=== PATIENT | male | born 1950 | race Caucasian/White ===

== ENCOUNTER → 2022-06-26 | Outpatient (CLI) | payer OTHER ==
[2022-06-26 12:49] LABS: Creatinine Urine 56.3 mg/dL (27.00-270.00); Microalbumin, Urine Quant. 11.3 mg/L (0.000-20.000)
[2022-06-26 12:50] LABS: Protein, Urine Quantitative 6.8 mg/dL (0.0-11.9)
== END | disposition home or self-care (01) ==
LOC: LAB SHORT 06:11
PROVIDERS: Internal Medicine Nephrology
DX: N18.30 Chronic kidney disease, stage 3 unspecified (principal); D63.1 Anemia in chronic kidney disease; N25.81 Secondary hyperparathyroidism of renal origin; E55.9 Vitamin D deficiency, unspecified; E29.1 Testicular hypofunction; D51.8 Other vitamin B12 deficiency anemias; D52.8 Other folate deficiency anemias; D50.9 Iron deficiency anemia, unspecified; R76.9 Abnormal immunological finding in serum, unspecified; R94.5 Abnormal results of liver function studies; R94.6 Abnormal results of thyroid function studies
CPT/HCPCS: 81050; 82043; 82570; 84156

== ENCOUNTER → 2022-07-03 | Outpatient (CLI) | payer OTHER | LOC: PLD 10:58 → LAB SHORT 10:58 | DX: D48.5 Neoplasm of uncertain behavior of skin (principal) | CPT/HCPCS: 88305 ==

== ENCOUNTER 2023-07-10 13:45 | Day surgery (SDC) | payer OTHER ==
[~2023-07-10] VITALS: Ht 177.8 cm; Wt 100.5 kg
[~2023-07-10 13:45] MED LIST: ACET500 PO; AMLO5 PO; Amlodipine Bes2.5 MG PO; Atropine Sulfate 0.1 MG/ML 10ML SYR ONE; CLOP75 PO; COLCRYS0.6 M1 PO; Carvedilol12.5 MG PO; Crestor20 MG PO; DOCU100 PO; Diovan160 MG PO; FAMO40; FISH OIL/OMEGA 3 PO; FURO20 PO; Glycopyrrolate 0.2 MG/ML 1MLVIAL ONE; LASIX20 M2 PO; LEVSOD25 PO; Lactated Ringer's 1,000 ML IV ONE; Lidocaine 2% 5 ML SDV ONE; Lidocaine HCl/Pf 1% 5 ML VIAL ONE; MULTI-VITAMIN1 EAC2 PO; MVI PO; Methylene Blue 1% 100 MG/10 ML VIAL ONE; OMEGA-3-FISH O1 EAC3 PO; OMEP20ER PO; Ondansetron HCl 2 MG / ML 2ML Vial ONE; Percocet 5-3251 EACH PO; SENNA LAXATIVE8.6 MG PO; ePHEDrine Sulfate 50 MG/ML 1ML Injection ONE; propofoL 0 ML IV ONE
[2023-07-10] MEDS ORDERED: propofoL 50 ML IV ONE (14:59)
[2023-07-10] MEDS ORDERED: Lactated Ringer's 1,000 ML IV ONE (15:26)
[2023-07-10] MEDS ORDERED: Lidocaine HCl 4% 5 ML SDA ONE (15:29)
--- NOTE | 2023-07-10 15:29 | NUR ---
07/10/23 1529 Antonietta Rebollar PT AMBULATORY IN PRE OP INDEPENDENTLY. AT BEDSIDE. CALL LIGHT IN REACH, BED IN LOWEST LOCKED POSITION.
[2023-07-10] MEDS ORDERED: propofoL 20 ML IV ONE (16:30)
[2023-07-10 17:23] VITALS: BP 166/86
== END 2023-07-10 17:28 | disposition home or self-care (01) ==
LOC: ORSCSDS 13:45
PROVIDERS: Surgery
PROC: 0DBP8ZX Excision of Rectum, Via Natural or Artificial Opening Endoscopic, Diagnostic (ICD-10-PCS; principal; 2023-07-10 15:00)
PROC: 0DBN8ZX Excision of Sigmoid Colon, Via Natural or Artificial Opening Endoscopic, Diagnostic (ICD-10-PCS; principal; 2023-07-10 15:00)
PROC: 0DBK8ZX Excision of Ascending Colon, Via Natural or Artificial Opening Endoscopic, Diagnostic (ICD-10-PCS; principal; 2023-07-10 15:00)
PROC: 0DBL8ZX Excision of Transverse Colon, Via Natural or Artificial Opening Endoscopic, Diagnostic (ICD-10-PCS; principal; 2023-07-10 15:00)
DX: K21.9 Gastro-esophageal reflux disease without esophagitis (principal); R10.13 Epigastric pain; K44.9 Diaphragmatic hernia without obstruction or gangrene; Z12.11 Encounter for screening for malignant neoplasm of colon; Z80.0 Family history of malignant neoplasm of digestive organs; D12.2 Benign neoplasm of ascending colon; D12.3 Benign neoplasm of transverse colon; K63.5 Polyp of colon; K62.1 Rectal polyp; E11.22 Type 2 diabetes mellitus with diabetic chronic kidney disease; I12.9 Hypertensive chronic kidney disease with stage 1 through stage 4 chronic kidney disease, or unspecified chronic kidney disease; N18.30 Chronic kidney disease, stage 3 unspecified; Z87.891 Personal history of nicotine dependence; E03.9 Hypothyroidism, unspecified; I25.10 Atherosclerotic heart disease of native coronary artery without angina pectoris; Z79.02 Long term (current) use of antithrombotics/antiplatelets; Z79.899 Other long term (current) drug therapy
CPT/HCPCS: 82947; 88305; 88342; J0461; J2001; J2405; J2704; J7120; Q9968

== ENCOUNTER 2025-04-06 06:02 | Day surgery (SDC) | payer OTHER ==
[~2025-04-06] VITALS: Ht 175.3 cm; Wt 87.8 kg
[2025-04-06] VITALS (8 sets, daily range): BP systolic 114–135; BP diastolic 60–71
[~2025-04-06 06:02] MED LIST changes: -Amlodipine Bes2.5 MG PO; -Atropine Sulfate 0.1 MG/ML 10ML SYR ONE; -Crestor20 MG PO; -Glycopyrrolate 0.2 MG/ML 1MLVIAL ONE; -Lactated Ringer's 1,000 ML IV ONE; -Lidocaine 2% 5 ML SDV ONE; -Lidocaine HCl/Pf 1% 5 ML VIAL ONE; -Methylene Blue 1% 100 MG/10 ML VIAL ONE; +OMEGA-3 FISH O1 EA21 PO; +OXYC5 PO; -Ondansetron HCl 2 MG / ML 2ML Vial ONE; +ROSUVASTATIN CA20 MG PO; -ePHEDrine Sulfate 50 MG/ML 1ML Injection ONE; -propofoL 0 ML IV ONE
--- NOTE | 2025-04-06 06:56 | NUR ---
Ambulatory in Day Surgery History, Chart, Medications and Allergies reviewed before start of procedure. Pre-Op teaching done. Pt verbalizes understanding. Patient States Post-Procedure ride home has been arranged.
[2025-04-06] MEDS ORDERED: CeFAZolin Sodium 2,000 MG in NS 100 ML IV SCH (07:15)
[2025-04-06] MEDS ORDERED: FentaNYL Citrate 50 MCG/ML 2 ML Injection ONE (07:19)
[2025-04-06] MEDS ORDERED: Dexamethasone Sod Phos 10 MG/ML 1ML VIAL ONE (07:47)
[2025-04-06] MEDS ORDERED: Ondansetron HCl 2 MG / ML 2ML Vial ONE (07:47)
[2025-04-06] MEDS ORDERED: Ketorolac Tromethamine 30mg Vial ONE (07:48)
[2025-04-06] MEDS ORDERED: Phenylephrine HCl 100 MCG/ML-NS 10MLSYR (1MG/10ML) ONE (07:49)
[2025-04-06] MEDS ORDERED: Albuterol 2.5 MG/3 ML VIAL INH PRN (07:55)
[2025-04-06] MEDS ORDERED: HYDROmorphone HCl/Pf 1MG SYR IV PRN ×2 (07:55)
[2025-04-06] MEDS ORDERED: FentaNYL Citrate 50 MCG/ML 2 ML Injection IV PRN ×2 (07:55)
[2025-04-06] MEDS ORDERED: Ondansetron HCl 2 MG / ML 2ML Vial IV PRN (07:55)
[2025-04-06] MEDS ORDERED: Albuterol HFA200 ACT/6.7 GM INH ONE (07:56)
[2025-04-06] MEDS ORDERED: Albuterol 2.5 MG/3 ML VIAL ONE (08:30)
--- NOTE | 2025-04-06 09:18 | NUR ---
Patient States Post-Procedure ride home has been arranged. Discharged via wheelchair to private car for ride home. Discharge instructions reviewed with patient. Patient verbalizes understanding. Copy given to patient to take home.
== END 2025-04-06 23:00 | disposition home or self-care (01) ==
LOC: ORSCMMR 06:02 → ORD 07:30 → ORSCMMR 07:30
PROVIDERS: Surgery
PROC: 0JH60WZ Insertion of Totally Implantable Vascular Access Device into Chest Subcutaneous Tissue and Fascia, Open Approach (ICD-10-PCS; principal; 2025-04-06 07:30)
DX: C25.0 Malignant neoplasm of head of pancreas (principal); I10 Essential (primary) hypertension; I25.10 Atherosclerotic heart disease of native coronary artery without angina pectoris; K21.9 Gastro-esophageal reflux disease without esophagitis; E03.9 Hypothyroidism, unspecified; G47.33 Obstructive sleep apnea (adult) (pediatric); Z79.899 Other long term (current) drug therapy; F17.290 Nicotine dependence, other tobacco product, uncomplicated
CPT/HCPCS: 77001; 82947; A9270; C1788; J0690; J1100; J1642; J1885; J2371; J2405; J2704; J3010; J7120

== ENCOUNTER → 2025-04-19 | Outpatient (CLI) | payer OTHER ==
[~2025-04-19] MED LIST changes: +ONDA4ODT MM
[2025-04-19 12:02] LABS: Anion Gap 18.0 mmol/L (3-11); Blood Urea Nitrogen 22.0 mg/dL (8-24); CO2, Blood 23.0 mmol/L (21-32); Calcium, Blood 9.2 mg/dL (8.5-10.1); Chloride, Blood 100.0 mmol/L (98-108); Creatinine, Blood 1.36 mg/dL (0.60-1.20); Glucose, Blood 165.0 mg/dL (70-99); Potassium, Blood 4.5 mmol/L (3.5-5.5); Sodium, Blood 136.0 mmol/L (136-145)
== END ==
LOC: LAB 11:03 → LAB SHORT 11:03
PROVIDERS: Internal Medicine Hematology & Oncology
DX: C25.0 Malignant neoplasm of head of pancreas (principal)
CPT/HCPCS: 36415; 80048

== ENCOUNTER 2025-04-25 12:44 | Emergency (ER) | payer OTHER ==
[~2025-04-25] VITALS: Ht 177.8 cm; Wt 83.9 kg
[~2025-04-25 12:44] MED LIST changes: -ONDA4ODT MM
[2025-04-25 13:31] LABS: BASOPHILS ABSOLUTE AUTO 0.04 K/mm3 (0.00-0.23); BASOPHILS PERCENT AUTO 1 % (0-2); EOSINOPHILS ABSOLUTE AUTO 0.26 K/mm3 (0.00-0.68); EOSINOPHILS PERCENT AUTO 4 % (0-6); Hematocrit 44.8 % (37.0-53.0); Hemoglobin 15.4 g/dL (13.5-17.5); IMMATURE GRAN ABSOLUTE AUTO 0.02 K/mm3 (0.00-0.10); IMMATURE GRAN PERCENT AUTO 0 % (0-1); LYMPHOCYTES ABSOLUTE AUTO 2.70 K/mm3 (0.84-5.20); LYMPHOCYTES PERCENT AUTO 46 % (21-46); MONOCYTES ABSOLUTE AUTO 0.62 K/mm3 (0.16-1.47); MONOCYTES PERCENT AUTO 11 % (4-13); Mean Corpuscular HGB Conc 34.4 g/dL (31.5-36.5); Mean Corpuscular Volume 92 fL (80-100); NEUTROPHILS ABSOLUTE AUTO 2.25 K/mm3 (1.96-9.15); NEUTROPHILS PERCENT AUTO 38 % (41-73); NRBC ABSOLUTE 0.00 K/mm3 (0.00-0.02); NRBC Auto 0.0 /100 WBC (0.0-0.2); Platelet Count 234 K/mm3 (150-400); RDW Coefficient Variation 13.2 % (11.7-14.2); RDW Standard Deviation 44.5 fL (35.1-46.3)
[2025-04-25] MEDS ORDERED: Prochlorperazine Edisylate 10 mg Vial IV ONE (13:40)
[2025-04-25 13:50] LABS: Alanine Aminotransfer (ALT/SGP 29.0 U/L (12-78); Albumin, Blood 3.3 g/dL (3.4-5.0); Albumin/Globulin Ratio 0.9 (0.8-1.8); Anion Gap 16.0 mmol/L (3-11); Aspartate Aminotrans (AST/SGOT 12.0 U/L (12-37); Bilirubin, Total 0.5 mg/dL (0.1-1.0); Blood Urea Nitrogen 35.0 mg/dL (8-24); CO2, Blood 15.0 mmol/L (21-32); Calcium, Blood 9.8 mg/dL (8.5-10.1); Chloride, Blood 106.0 mmol/L (98-108); Creatinine, Blood 1.73 mg/dL (0.60-1.20); Globulin, Blood 3.6 g/dL (2.2-4.0); Glucose, Blood 150.0 mg/dL (70-99); Potassium, Blood 4.6 mmol/L (3.5-5.5); Sodium, Blood 132.0 mmol/L (136-145); Total Protein, Blood 6.9 g/dL (6.4-8.2)
[2025-04-25 14:13] LABS: Magnesium, Blood 2.3 mg/dL (1.6-2.4)
[2025-04-25] MEDS ORDERED: ONDA4ODT MM (15:24)
[2025-04-25 15:37] VITALS: BP 108/58
== END 2025-04-25 16:36 | disposition home or self-care (01) ==
LOC: ER 12:44
PROVIDERS: Emergency Medicine
DX: E86.0 Dehydration (principal); R19.7 Diarrhea, unspecified; R11.0 Nausea; C25.9 Malignant neoplasm of pancreas, unspecified; I10 Essential (primary) hypertension; E78.5 Hyperlipidemia, unspecified; Z95.1 Presence of aortocoronary bypass graft; Z79.02 Long term (current) use of antithrombotics/antiplatelets; Z79.890 Hormone replacement therapy; Z79.899 Other long term (current) drug therapy
CPT/HCPCS: 80053; 83690; 83735; 85025; 93005; 93010; 96361; 96374; 99285-25; A9270; J0780; J7120

== ENCOUNTER → 2025-05-03 | Outpatient (CLI) | payer OTHER ==
[~2025-05-03] MED LIST changes: +AMLODIPINE BESYL5 MG PO; +LOPE2C PO; +ONDA4ODT MM
[2025-05-03 11:15] LABS: Anion Gap 14.0 mmol/L (3-11); Blood Urea Nitrogen 22.0 mg/dL (8-24); CO2, Blood 19.0 mmol/L (21-32); Calcium, Blood 9.1 mg/dL (8.5-10.1); Chloride, Blood 105.0 mmol/L (98-108); Creatinine, Blood 1.38 mg/dL (0.60-1.20); Glucose, Blood 148.0 mg/dL (70-99); Potassium, Blood 3.9 mmol/L (3.5-5.5); Sodium, Blood 134.0 mmol/L (136-145)
== END | disposition home or self-care (01) ==
LOC: LAB 09:30 → LAB SHORT 09:30
PROVIDERS: Internal Medicine Hematology & Oncology
DX: C25.9 Malignant neoplasm of pancreas, unspecified (principal)
CPT/HCPCS: 80048

== ENCOUNTER 2025-05-09 10:47 | Observation (INO) | payer OTHER ==
[~2025-05-09] VITALS: Ht 177.8 cm; Wt 78.0 kg
[~2025-05-09 10:47] MED LIST changes: -AMLODIPINE BESYL5 MG PO; -LOPE2C PO
[2025-05-09] MEDS ORDERED: NS 1,000 ML IV SCH (11:00)
[2025-05-09 11:53] LABS: Hematocrit 35.7 % (37.0-53.0); Hemoglobin 12.4 g/dL (13.5-17.5); Mean Corpuscular HGB Conc 34.7 g/dL (31.5-36.5); Mean Corpuscular Volume 91 fL (80-100); NRBC ABSOLUTE 0.00 K/mm3 (0.00-0.02); NRBC Auto 0.0 /100 WBC (0.0-0.2); Platelet Count 97 K/mm3 (150-400); RDW Coefficient Variation 13.4 % (11.7-14.2); RDW Standard Deviation 44.9 fL (35.1-46.3)
[2025-05-09 12:13] LABS: Alanine Aminotransfer (ALT/SGP 36.0 U/L (12-78); Albumin, Blood 2.5 g/dL (3.4-5.0); Albumin/Globulin Ratio 1.0 (0.8-1.8); Anion Gap 14.0 mmol/L (3-11); Aspartate Aminotrans (AST/SGOT 20.0 U/L (12-37); Bilirubin, Total 0.5 mg/dL (0.1-1.0); Blood Urea Nitrogen 22.0 mg/dL (8-24); CO2, Blood 16.0 mmol/L (21-32); Calcium, Blood 7.8 mg/dL (8.5-10.1); Chloride, Blood 108.0 mmol/L (98-108); Creatinine, Blood 1.2 mg/dL (0.60-1.20); Globulin, Blood 2.6 g/dL (2.2-4.0); Glucose, Blood 189.0 mg/dL (70-99); Magnesium, Blood 1.6 mg/dL (1.6-2.4); Potassium, Blood 3.8 mmol/L (3.5-5.5); Sodium, Blood 134.0 mmol/L (136-145); Total Protein, Blood 5.1 g/dL (6.4-8.2)
[2025-05-09 12:16] LABS: BAND PERCENT MAN 1 % (0-8); BASOPHILS ABSOLUTE MAN 0.00 K/mm3 (0.00-0.23); BASOPHILS PERCENT MAN 0 % (0-2); EOSINOPHILS ABSOLUTE MAN 0.00 K/mm3 (0.00-0.68); EOSINOPHILS PERCENT MAN 0 % (0-6); LYMPHOCYTES ABSOLUTE MAN 0.57 K/mm3 (0.84-5.20); LYMPHOCYTES PERCENT MAN 6 % (21-46); MONOCYTES ABSOLUTE MAN 0.00 K/mm3 (0.16-1.47); MONOCYTES PERCENT MAN 0 % (4-13); NEUTROPHILS ABSOLUTE MAN 9.06 K/mm3 (1.96-9.15); SEG NEUTROPHILS PERCENT MAN 93 % (41-73)
[2025-05-09 12:40] LABS: pH Blood Venous 7.32 (7.34-7.37)
[2025-05-09] MEDS ORDERED: NS 500 ML IV SCH (13:30)
[2025-05-09] MEDS ORDERED: AMLODIPINE BESYL5 MG PO (14:21)
[2025-05-09] MEDS ORDERED: FLU VACC TS2025(65UP)/MF59C/PF 45 MCG/0.5 ML SYRINGE IM SCH (18:30)
[2025-05-09] MEDS ORDERED: Ondansetron HCl 2 MG / ML 2ML Vial IV PRN (18:30)
[2025-05-09 20:14] VITALS: BP 116/68
[2025-05-09 23:47] VITALS: BP 114/70
[2025-05-10 04:23] VITALS: BP 118/65
--- NOTE | 2025-05-10 04:35 | NUR ---
TRANSFER OF CARE Pt admitted for hypotension. BP stable since admit, systolic > 110. No c/o of dizzyness. Pt has not gotten up for me yet. Transferring care to Jana Prescott RN.
--- NOTE | 2025-05-10 06:45 | NUR ---
SHIFT SUMMARY PATIENT ADMITTED FOR HYPOTENSION. PATIENT ALERT AND ORIENTED X4. VSS. NO ACUTE OVERNIGHT EVENTS. I ASSUMED CARE OF PATIENT AT APPROXIMATELY 0430, PATIENT HAS NOT GOTTEN UP AT THIS TIME. BED RAILS UP X2. BED IN LOWEST POSITION FOR SAFETY. CALL LIGHT WITHIN REACH.
[2025-05-10 06:53] LABS: BASOPHILS ABSOLUTE AUTO 0.04 K/mm3 (0.00-0.23); BASOPHILS PERCENT AUTO 1 % (0-2); EOSINOPHILS ABSOLUTE AUTO 0.04 K/mm3 (0.00-0.68); EOSINOPHILS PERCENT AUTO 1 % (0-6); Hematocrit 32.8 % (37.0-53.0); Hemoglobin 11.7 g/dL (13.5-17.5); IMMATURE GRAN ABSOLUTE AUTO 0.04 K/mm3 (0.00-0.10); IMMATURE GRAN PERCENT AUTO 1 % (0-1); LYMPHOCYTES ABSOLUTE AUTO 2.26 K/mm3 (0.84-5.20); LYMPHOCYTES PERCENT AUTO 34 % (21-46); MONOCYTES ABSOLUTE AUTO 0.07 K/mm3 (0.16-1.47); MONOCYTES PERCENT AUTO 1 % (4-13); Mean Corpuscular HGB Conc 35.7 g/dL (31.5-36.5); Mean Corpuscular Volume 91 fL (80-100); NEUTROPHILS ABSOLUTE AUTO 4.22 K/mm3 (1.96-9.15); NEUTROPHILS PERCENT AUTO 63 % (41-73); NRBC ABSOLUTE 0.00 K/mm3 (0.00-0.02); NRBC Auto 0.0 /100 WBC (0.0-0.2); Platelet Count 102 K/mm3 (150-400); RDW Coefficient Variation 13.4 % (11.7-14.2); RDW Standard Deviation 44.5 fL (35.1-46.3)
[2025-05-10 07:07] VITALS: BP 130/65
[2025-05-10 07:12] LABS: Alanine Aminotransfer (ALT/SGP 35.0 U/L (12-78); Albumin, Blood 2.4 g/dL (3.4-5.0); Albumin/Globulin Ratio 0.9 (0.8-1.8); Anion Gap 13.0 mmol/L (3-11); Aspartate Aminotrans (AST/SGOT 15.0 U/L (12-37); Bilirubin, Total 0.4 mg/dL (0.1-1.0); Blood Urea Nitrogen 19.0 mg/dL (8-24); CO2, Blood 18.0 mmol/L (21-32); Calcium, Blood 8.0 mg/dL (8.5-10.1); Chloride, Blood 110.0 mmol/L (98-108); Creatinine, Blood 1.04 mg/dL (0.60-1.20); Globulin, Blood 2.8 g/dL (2.2-4.0); Glucose, Blood 102.0 mg/dL (70-99); Magnesium, Blood 1.7 mg/dL (1.6-2.4); Potassium, Blood 3.6 mmol/L (3.5-5.5); Sodium, Blood 137.0 mmol/L (136-145); Total Protein, Blood 5.2 g/dL (6.4-8.2)
[2025-05-10] MEDS ORDERED: Enoxaparin 40 MG/0.4 ML SYR SC SCH (09:00)
[2025-05-10] MEDS ORDERED: Potassium Chloride 10 Meq Tablet SA PO ONE (09:55)
[2025-05-10] MEDS ORDERED: LOPE2C PO (15:25)
[2025-05-10] MEDS ORDERED: ACET500 PO (15:26)
--- NOTE | 2025-05-10 16:16 | NUR ---
PATIENT DC'D TO HOME WITH . DC INSTRUCTIONS AND EDUCATIONS DISCUSSED WITH PATIENT AND COPY PROVIDED. PATIENT DENIES ANY FURTHER QUESTIONS OR CONCERNS. HARD SCRIPT FOR WAQAS GARCIA AND ABDOMINAL BINDER SENT HOME WITH PATIENT.
== END 2025-05-10 16:01 | disposition home or self-care (01) ==
LOC: ER 10:47 → ERHOLD 10:48 → MEDS 20:07
PROVIDERS: Student in an Organized Health Care Education/Training Program; ADMIT Family Medicine
DX: I95.2 Hypotension due to drugs (principal); R53.1 Weakness; C25.9 Malignant neoplasm of pancreas, unspecified; I10 Essential (primary) hypertension; E78.5 Hyperlipidemia, unspecified; I25.10 Atherosclerotic heart disease of native coronary artery without angina pectoris; Z79.899 Other long term (current) drug therapy
CPT/HCPCS: 71045; 80053; 82803; 83735; 83880; 84484; 85025; 93005; 93010; 96360; 97110; 97161; 97165; 97530; 99285-25; A9270; G0378; J1642; J7030; J7120